=== PATIENT | male | born 1960 | race Caucasian/White ===

== ENCOUNTER 2020-03-26 09:04 | Emergency (ER) | payer BC ==
[~2020-03-26] VITALS: Ht 185.4 cm; Wt 104.3 kg
[~2020-03-26 09:04] MED LIST: LIPITOR20 MG PO; METOPROLOL; METOPROLOL SUCC25 M1
[2020-03-26 09:12] VITALS: Ht 185.4 cm; Wt 104.3 kg
[2020-03-26 10:38] LABS: BASOPHIL % 0.2 % (0-2); PLATELET COUNT 264 x10^3mcL (130-400); RED CELL DISTRIBUTION WIDTH 13.1 % (11.5-14.5)
[2020-03-26 11:30] LABS: CALCIUM 9.2 mg/dL (8.5-10.1); CARBON DIOXIDE 27.8 mmol/L (21-32); CHLORIDE SERUM 99 mmol/L (98-107); GFR1 > 60 mL/min; GLUCOSE SERUM 280 mg/dL (74-106); POTASSIUM SERUM 3.8 mmol/L (3.5-5.1); SODIUM SERUM 137 mmol/L (136-145)
[2020-03-26 11:34] LABS: ALBUMIN 4.5 g/dL (3.4-5.0); ALKALINE PHOSPHATASE 83 U/L (46-116); ALT/SGPT 41 U/L (16-63); AST/SGOT 18 U/L (15-37); TOTAL PROTEIN, SERUM 7.5 g/dL (6.4-8.2)
[2020-03-26 14:02] VITALS: BP 134/94
== END 2020-03-26 14:02 | disposition home or self-care (01) ==
LOC: ED 09:04
PROVIDERS: Emergency Medicine
DX: R42 Dizziness and giddiness (principal); R63.1 Polydipsia; R35.8 Other polyuria; E11.9 Type 2 diabetes mellitus without complications; I10 Essential (primary) hypertension; E78.00 Pure hypercholesterolemia, unspecified; Z88.8 Allergy status to other drugs, medicaments and biological substances
CPT/HCPCS: 82962; J2765; J8597

== ENCOUNTER 2020-05-09 20:09 | Inpatient (IN) | payer BC ==
[~2020-05-09] VITALS: Ht 185.4 cm; Wt 99.3 kg
[2020-05-09 20:18] VITALS: Ht 185.4 cm; Wt 99.3 kg
[2020-05-09 21:49] LABS: BASOPHIL % 0.5 % (0-2); PLATELET COUNT 239 x10^3mcL (130-400); RED CELL DISTRIBUTION WIDTH 13.8 % (11.5-14.5)
[2020-05-09 21:57] LABS: CALCIUM 9.2 mg/dL (8.5-10.1); CARBON DIOXIDE 28.6 mmol/L (21-32); CHLORIDE SERUM 97 mmol/L (98-107); GFR1 > 60 mL/min; GLUCOSE SERUM 136 mg/dL (74-106); SODIUM SERUM 135 mmol/L (136-145)
[2020-05-09 22:01] LABS: ALBUMIN 4.6 g/dL (3.4-5.0); ALKALINE PHOSPHATASE 57 U/L (46-116); ALT/SGPT 35 U/L (16-63); AST/SGOT 24 U/L (15-37); BILIRUBIN TOTAL 0.9 mg/dL (0.20-1.00); LIPASE 172 IU/L (73-393); TOTAL PROTEIN, SERUM 7.7 g/dL (6.4-8.2)
[2020-05-10] MEDS ORDERED: METOPROLOL SUCC25 M2 PO (01:15)
[2020-05-10] MEDS ORDERED: VALSARTAN320 MG PO (01:15)
[2020-05-10] MEDS ORDERED: NOR5 PO (01:16)
[2020-05-10] MEDS ORDERED: FORTAMET1000 MG PO (01:17)
[2020-05-10 02:47] LABS: microscopic required? NO
[2020-05-10 03:21] VITALS: BP 135/91
[2020-05-10 03:31] LABS: UA SPECIFIC GRAVITY 1.015 (1.005-1.035); urine erythrocyte NEGATIVE (NEGATIVE)
[2020-05-10 03:43] LABS: AMPHETAMINE QUAL UR NONE DETECTED (See below)
[2020-05-10 04:29] LABS: T3 TOTAL 0.9 ng/mL
[2020-05-10 04:35] LABS: CHOLESTEROL/HDL RATIO 2.6
[2020-05-10 04:55] LABS: FREE T4 0.91 ng/dL (0.76-1.46); FREE THYROXINE INDEX 2.2 ug/dL (1.4-4.5); T4(THYROXINE) 6.6 ug/dL (4.7-13.3)
[2020-05-10 05:57] VITALS: BP 123/83
[2020-05-10 06:38] LABS: PLATELET COUNT 271 x10^3mcL (130-400); RED CELL DISTRIBUTION WIDTH 13.5 % (11.5-14.5)
[2020-05-10 06:45] LABS: ALBUMIN 3.8 g/dL (3.4-5.0); ALKALINE PHOSPHATASE 55 U/L (46-116); ALT/SGPT 34 U/L (16-63); AST/SGOT 18 U/L (15-37); BILIRUBIN TOTAL 0.68 mg/dL (0.20-1.00); CALCIUM 8.3 mg/dL (8.5-10.1); CARBON DIOXIDE 30.2 mmol/L (21-32); CHLORIDE SERUM 103 mmol/L (98-107); GFR1 > 60 mL/min; GLUCOSE SERUM 106 mg/dL (74-106); POTASSIUM SERUM 3.9 mmol/L (3.5-5.1); SODIUM SERUM 141 mmol/L (136-145); TOTAL PROTEIN, SERUM 6.7 g/dL (6.4-8.2)
[2020-05-10 07:13] LABS: BASOPHIL % 0 % (0-2)
[2020-05-10 07:54] VITALS: BP 129/82
[2020-05-10 12:00] VITALS: BP 137/88
[2020-05-10 13:10] VITALS: BP 137/88
[2020-05-10 16:21] VITALS: BP 129/79
[2020-05-10] MEDS ORDERED: REGLAN10 M1 PO (19:28)
== END 2020-05-10 19:05 | disposition home or self-care (01) | DRG 392 ==
LOC: ED 20:09 → MU 05-10 01:53
PROVIDERS: Emergency Medicine; ADMIT Family Medicine; ATTEND Family Medicine
DX: A05.9 Bacterial foodborne intoxication, unspecified (principal); E87.1 Hypo-osmolality and hyponatremia; E11.9 Type 2 diabetes mellitus without complications; E78.5 Hyperlipidemia, unspecified; I10 Essential (primary) hypertension; D72.829 Elevated white blood cell count, unspecified; E87.8 Other disorders of electrolyte and fluid balance, not elsewhere classified; E78.00 Pure hypercholesterolemia, unspecified; E87.6 Hypokalemia; K52.9 Noninfective gastroenteritis and colitis, unspecified; Z20.828 Contact with and (suspected) exposure to other viral communicable diseases; Z91.018 Allergy to other foods; Z79.84 Long term (current) use of oral hypoglycemic drugs
CPT/HCPCS: 82962; 83880; 84439; C9113; G0378; G0480; J2405; J2765; J7030; Q0162